=== PATIENT | female | born 1965 | race Caucasian/White ===

== ENCOUNTER 2019-01-24 17:09 | Outpatient (REF) | payer OTHER, SELFPAY ==
--- NOTE | 2019-01-24 14:50 | PAPFT_PTH ---
PATIENT: Ifrah Hein LOC: [facility] U#:[id number] AGE/SX: 53/F ROOM: RE01/24/[address]: NINA Beckman : 1965 BED: DIS: 01/24/2019 SPEC #: [id number] RECD: 01/24/19 17:58 STATUS: JAS REDelores #: [id number] SARAH: 01/24/19 14:[address]: Thao Bailey DEPT: [facility] RECD BY: Sharla Tello ENTERED: 01/24/19 17:58 SP TYPE: PAPFT OTHR DR: Yuliana Dean Tissues: 1 - CX/ENDOCX FOR PAP SMEARS Procedures: PAP THIN PREP/UVM Screening HPV DNA PROBE Comments: [id number]
== END 2019-01-24 17:29 ==
LOC: LBN 17:09
PROVIDERS: PCP Family Medicine; Visit Provider Nurse Practitioner Family
DX: Z12.4 Encounter for screening for malignant neoplasm of cervix (principal); Z11.51 Encounter for screening for human papillomavirus (HPV)
CPT/HCPCS: 88142; 87624

== ENCOUNTER 2019-07-04 08:20 | Day surgery (SDC) | payer OTHER, SELFPAY ==
[2019-07-04 08:33] VITALS: BP 129/89; PULSE 89; RESP 18; TEMP 36.2; O2SAT 98
[2019-07-04] MEDS: Lactated Ringers 1,000 ML 80 ML IV ×2 (08:47→10:02)
--- NOTE | 2019-07-04 09:09 | W.PM.DSUDISC ---
Discharge Plan Disposition Patient Disposition: HOME Condition: Good Discharge Details Reason For Visit: Colonoscopy Attending Provider: Jessica Dyer Primary Care Provider: Yuliana Dean Home Meds and New Rx's Prescriptions: No Action No Known Home Meds RF: 0 Discharge Instructions Additional Instructions: Findings: One polyp was removed from the cecum. My office will contact you with biopsy results. Follow up: Plan for a colonoscopy in 5 years. Please call if you develop: fevers >101.5 Nausea or Vomiting Abdominal pain that is not transient DAY SURGERY UNIT POST COLONOSCOPY INSTRUCTIONS 1. Because there will be medication in your system for the next 24 hours, you may feel a little sleepy. Your coordination will be affected. Therefore: a. Do not drive or operate dangerous equipment for 24 hours. b. Do not drink alcohol beverages for 24 hours (not even beer). c. Plan to go home and rest for the day. 2. Generally there are no restrictions on your activity after a day or so has gone by, but you may feel a bit fatigued for a few days. 3 After you arrive home you may have a light meal and return to a normal diet as you can tolerate it without feeling sick to your stomach. 4. After surgery, you may feel pain or discomfort. This should be only transient, but if it persists please contact your doctor. 5. If there are any questions regarding the findings of your procedure, please feel free to contact your doctor. 6. If you are unable to contact your doctor with a problem, contact the hospital at [phone]. 7. Continue all your regular medications unless directed otherwise. I understand the above instructions and have no questions. Signature of Patient or Responsible Adult Escort Date/Time Name of Responsible Adult Escort Signature of Nurse Date/Time Activity:: Activity as Tolerated Diet:: As Tolerated Discharge Orders Discharge Orders: Discharge Order (Routine); Ordered 07/04/19 Ordered By: Jessica Dyer DS: Diagnosis Discharge Diagnosis (1) Colon polyp: Status: Acute
--- NOTE | 2019-07-04 10:15 | BOWEL_PTH ---
PATIENT: Ifrah Hein LOC: [facility] U#:[id number] AGE/SX: 54/F ROOM: RE07/04/[address]: Jessica Dyer MD : 1965 BED: DIS: 07/04/2019 SPEC #: [id number] RECD: 07/04/19 12:53 STATUS: AJS REQ #: [id number] SARAH: 07/04/19 10:[address]: Jessica Dyer DEPT: Surgical Specimen RECD BY: Sharla Tello ENTERED: 07/04/19 12:54 SP TYPE: Bowel OTHR DR: Yuliana Dean Tissues: 1 - BIOPSY BOWEL Procedures: GROSS AND MICRO LEVEL 4 Comments: [id number]
[2019-07-04 11:06] VITALS: BP 113/74; PULSE 77; RESP 16; TEMP 36.4; O2SAT 98
--- NOTE | 2019-07-04 15:03 | COLE_ITS ---
DATE OF PROCEDURE: July 04, 2019 PREOPERATIVE DIAGNOSIS: Screening. POSTOPERATIVE DIAGNOSIS: Cecal polyp. PROCEDURE: Colonoscopy with cold forceps polypectomy. SURGEON: Jessica Dyer M.D. ANESTHESIA: General. INDICATIONS: This is a 54-year-old woman who presents for her first screening colonoscopy. She is a symptomatic. She has no family history of colon cancer, although her sister recently had surgery to remove a large colon polyp. PROCEDURE: She was placed in the left Turner position. Propofol was titrated to sedation. Digital re ctal examination revealed no abnormalities. The scope was advanced to the cecum without difficulty. Her prep was excellent. The ileocecal valve and appendiceal orifice were clearly identified. Near the appendiceal orifice there was a flat, < 1 cm polyp. The polyp was removed with a cold forceps in several pieces. This was sent to pathology. The scope was slowly withdrawn with no other abnormali ties seen within the ascending, transverse, descending, sigmoid colon or rectum, including on retrofl ex view. She tolerated the procedure well and was stable to recovery. It is anticipated she will need a follow-up colonoscopy again in five years, pending biopsy results. cc: Yuliana Dean M.D.
== END 2019-07-04 11:55 | disposition home or self-care (01) ==
PROVIDERS: PCP Family Medicine; Visit Provider Surgery
PROC: 0DJD8ZZ Inspection of Lower Intestinal Tract, Via Natural or Artificial Opening Endoscopic (ICD-10-PCS; CPT 45378; principal; 2019-07-04 09:45)
DX: Z12.11 Encounter for screening for malignant neoplasm of colon (principal); D12.0 Benign neoplasm of cecum; Z85.3 Personal history of malignant neoplasm of breast
CPT/HCPCS: 45380; 88305; J2001; J2250; J3010

== ENCOUNTER 2019-12-23 08:01 | Outpatient (CLI) | payer OTHER, SELFPAY ==
[2019-12-25 08:00] LABS: COVID-19 RT-PCR Result NEGATIVE (Negative)
== END 2019-12-23 08:21 ==
PROVIDERS: PCP Family Medicine; Visit Provider Nurse Practitioner Family
DX: Z11.59 Encounter for screening for other viral diseases (principal)
CPT/HCPCS: U0003

== ENCOUNTER 2021-02-16 13:32 | Outpatient (REF) | payer OTHER, SELFPAY ==
[2021-02-17 00:08] LABS: COVID-19 RT-PCR UVMMC Result Negative (Negative)
== END 2021-02-16 13:33 | disposition home or self-care (01) ==
LOC: LBN 13:32
PROVIDERS: PCP Family Medicine; Visit Provider Nurse Practitioner Family
DX: Z11.52 Encounter for screening for COVID-19 (principal); Z20.822 Contact with and (suspected) exposure to COVID-19
CPT/HCPCS: U0003

== ENCOUNTER 2021-03-02 13:24 | Outpatient (REF) | payer OTHER, SELFPAY | END 2021-03-02 13:25 | disposition home or self-care (01) | LOC: LBN 13:24 | PROVIDERS: PCP Family Medicine | DX: Z20.822 Contact with and (suspected) exposure to COVID-19 (principal) | CPT/HCPCS: U0003 ==

== ENCOUNTER 2021-03-09 09:41 | Outpatient (REF) | payer OTHER, SELFPAY | END 2021-03-09 09:42 | disposition home or self-care (01) | LOC: LBN 09:41 | PROVIDERS: PCP Family Medicine | DX: Z20.822 Contact with and (suspected) exposure to COVID-19 (principal) | CPT/HCPCS: U0003 ==

== ENCOUNTER 2021-03-21 14:29 | Outpatient (REF) | payer OTHER, SELFPAY ==
[2021-03-21 11:29] LABS: Source Nasal/Nares
[2021-03-21 16:28] LABS: COVID-19 PCR Negative (Negative)
== END 2021-03-21 14:30 | disposition home or self-care (01) ==
LOC: LBN 14:29
PROVIDERS: PCP Family Medicine; Visit Provider Nurse Practitioner Family
DX: Z20.822 Contact with and (suspected) exposure to COVID-19 (principal)
CPT/HCPCS: 87635

== ENCOUNTER 2021-06-24 10:02 | Outpatient (REF) | payer OTHER, SELFPAY ==
[2021-06-24 16:23] LABS: Calculated LDL 123 mg/dL (<100); Cholesterol 211 mg/dL (<200); HDL Cholesterol 58 mg/dL (40-60); Triglyceride 150 mg/dL (<150)
[2021-06-27 10:57] LABS: Hepatitis C Ab w Rflx HCV PCR Negative (Negative)
[2021-06-27 11:08] LABS: HIV-1/2 Ag & Ab Screen Negative (Negative)
== END 2021-06-24 10:03 | disposition home or self-care (01) ==
LOC: NCHCN 10:02
PROVIDERS: PCP Family Medicine; Visit Provider Family Medicine
DX: R63.5 Abnormal weight gain (principal); R03.0 Elevated blood-pressure reading, without diagnosis of hypertension; Z00.00 Encounter for general adult medical examination without abnormal findings; Z11.4 Encounter for screening for human immunodeficiency virus [HIV]; Z11.59 Encounter for screening for other viral diseases
CPT/HCPCS: 80061; 86803; 87389; 83036

== ENCOUNTER 2021-10-28 11:35 | Outpatient (REF) | payer OTHER, SELFPAY ==
--- NOTE | 2021-10-28 11:00 | PAPFT_PTH ---
PATIENT: Ifrah Hein LOC: [facility] U#:[id number] AGE/SX: 56/F ROOM: RE10/28/[address]: NINA Beckman : 1965 BED: DIS: 10/28/2021 SPEC #: [id number] RECD: 10/28/21 12:25 STATUS: JAS REDelores #: [id number] SARAH: 10/28/21 11:[address]: Thao Bailey DEPT: [facility] RECD BY: Sharla Tello ENTERED: 10/28/21 12:25 SP TYPE: PAPFT OTHR DR: Yuliana Dean Tissues: 1 - CX/ENDOCX FOR PAP SMEARS Procedures: PAP THIN PREP/UVM Screening HPV DNA PROBE Comments: [id number]
== END 2021-10-28 11:36 | disposition home or self-care (01) ==
LOC: LBN 11:35
PROVIDERS: PCP Family Medicine; Visit Provider Nurse Practitioner Family
DX: Z12.4 Encounter for screening for malignant neoplasm of cervix (principal); Z11.51 Encounter for screening for human papillomavirus (HPV); R87.810 Cervical high risk human papillomavirus (HPV) DNA test positive
CPT/HCPCS: 88142; 87624

== ENCOUNTER 2021-11-04 10:01 | Outpatient (CLI) | payer OTHER, SELFPAY ==
--- NOTE | 2021-11-04 09:45 | DI.RAD_ITS ---
Exam(s) XR KNEE RT 3V AP,LAT,LEWIS EXAM: XR KNEE RT 3V AP,LAT,LEWIS CLINICAL HISTORY: eval R knee pain. TECHNIQUE: 2D digital imaging was performed of the right knee. Three views obtained. AP, lateral an d PA tunnel views were obtained. COMPARISON: CR RIGHT KNEE 3 VIEWS from 06/27/2017 FINDINGS: BONES: No acute fracture is present. No bony destructive lesion is seen. JOINTS: The knee is normally aligned. There is a small joint effusion. There is periarticular spurri ng in all 3 joint compartments. The articular surfaces are otherwise well maintained. SOFT TISSUE: Normal. IMPRESSION: Mild degenerative changes of the right knee. DATA REPOSITORY: RADIATION DOSE DELIVERED:
--- NOTE | 2021-11-04 09:45 | DI.RAD_ITS ---
Exam(s) XR KNEE LT 3V AP,LAT,LEWIS EXAM: XR KNEE LT 3V AP,LAT,LEWIS CLINICAL HISTORY: eval L knee pain. TECHNIQUE: 2D digital imaging was performed of the left knee. Three images were obtained. AP, late ral and PA tunnel views were obtained. COMPARISON: No previous for comparison. FINDINGS: BONES: No acute fracture is present. No bony destructive lesion is seen. JOINTS: The knee is normally aligned. There is a small suprapatellar joint effusion. Moderate degene rative changes are seen in the left knee with joint space narrowing and periarticular spurring. The findings are most marked in the medial femoral tibial joint. SOFT TISSUE: Normal. IMPRESSION: Moderate degenerative changes of the left knee. DATA REPOSITORY: RADIATION DOSE DELIVERED:
== END 2021-11-04 10:02 | disposition home or self-care (01) ==
LOC: DIORS 10:01
PROVIDERS: PCP Family Medicine; Referring Provider Family Medicine; Visit Provider Student in an Organized Health Care Education/Training Program
DX: M25.562 Pain in left knee (principal); M25.462 Effusion, left knee; M25.561 Pain in right knee; M25.461 Effusion, right knee; M17.0 Bilateral primary osteoarthritis of knee
CPT/HCPCS: 73562

== ENCOUNTER 2021-12-19 01:21 | Outpatient (CLI) | payer OTHER, SELFPAY ==
[2021-12-19 11:55] LABS: Source Nasal/Nares
[2021-12-19 15:28] LABS: COVID-19 PCR Negative (Negative)
== END 2021-12-19 01:22 | disposition home or self-care (01) ==
LOC: LBO 01:22
PROVIDERS: PCP Family Medicine; Visit Provider Student in an Organized Health Care Education/Training Program
DX: Z20.822 Contact with and (suspected) exposure to COVID-19 (principal); Z01.818 Encounter for other preprocedural examination
CPT/HCPCS: 87635

== ENCOUNTER 2021-12-19 01:54 | Outpatient (CLI) | payer OTHER, SELFPAY ==
[2021-12-19 08:03] LABS: HCT 43.7 % (36.0-46.0); HGB 14.2 g/dL (11.2-15.7); MCH 27.2 pg (27.0-33.0); MCHC 32.5 % (32.0-36.0); MCV 84 fL (80-95); MPV 10.5 fL (8.0-11.0); Platelet Count 336 10^3/uL (130-400); RBC 5.23 10^6/uL (3.93-5.22); RDW 12.9 % (11.7-14.6); RDW-SD 39.2 fL; WBC 8.98 10^3/uL (4.4-10.8)
[2021-12-19 08:47] LABS: Anion Gap 7.2 mmol/L (3-11); BUN 18 mg/dL (7-18); CO2 30.8 mmol/L (21.0-32.0); CREATININE 0.9 mg/dL (0.55-1.02); Calcium 8.8 mg/dL (8.5-10.1); Chloride 104 mmol/L (98-107); Glucose 110 mg/dL (74-106); Sodium 142 mmol/L (136-145)
== END 2021-12-19 01:55 | disposition home or self-care (01) ==
LOC: LBO 01:54
PROVIDERS: PCP Family Medicine; Visit Provider Student in an Organized Health Care Education/Training Program
DX: M25.562 Pain in left knee (principal); M17.12 Unilateral primary osteoarthritis, left knee; Z01.818 Encounter for other preprocedural examination; Z01.812 Encounter for preprocedural laboratory examination
CPT/HCPCS: 36415; 80048; 85027

== ENCOUNTER 2021-12-19 13:40 | Outpatient (CLI) | payer OTHER, SELFPAY ==
--- NOTE | 2021-12-19 11:30 | DI.RAD_ITS ---
Exam(s) XR STANDING ALIGNMENT EXAM: XR STANDING ALIGNMENT CLINICAL HISTORY: TKA PLANNING. TECHNIQUE: 2D digital imaging was performed. Standing AP views were performed from the pelvis throu gh the ankles. COMPARISON: CR XR KNEE RT 3V AP,LAT,LEWIS from 11/04/2021 CR XR KNEE LT 3V AP,LAT,LEWIS from 11/04/2021 FINDINGS: BONES: No acute fracture is present. No bony destructive lesion is seen. JOINTS: Knees: Right: Moderate narrowing medial femoral tibial joint space. Left: Severe narrowing m edial femoral tibial joint. The ankle and hip joints are unremarkable. SOFT TISSUE: Normal. IMPRESSION: Degenerative changes of both knees, left greater than right. No significant leg length discrepancy. DATA REPOSITORY: RADIATION DOSE DELIVERED:
== END 2021-12-19 13:41 | disposition home or self-care (01) ==
LOC: DIORS 13:40
PROVIDERS: PCP Family Medicine; Visit Provider Student in an Organized Health Care Education/Training Program
DX: M17.12 Unilateral primary osteoarthritis, left knee (principal); Z01.818 Encounter for other preprocedural examination
CPT/HCPCS: 77073

== ENCOUNTER 2021-12-20 06:02 | Day surgery (SDC) | payer OTHER, SELFPAY ==
[2021-12-20] VITALS (12 sets, daily range): BP systolic 106–166; BP diastolic 67–93; PULSE 74–85; RESP 10–16; TEMP 36.1–36.9; O2SAT 95–99; BMI 25.2
[2021-12-20] MEDS: Lactated Ringers 1,000 ML 80 ML IV (06:42)
[2021-12-20] MEDS: Acetaminophen 500 MG TAB 1000 MG PO (06:43)
[2021-12-20] MEDS: Celecoxib 200 MG CAP 400 MG PO (06:43)
[2021-12-20] MEDS: Gabapentin 300 MG CAP PO (06:43)
--- NOTE | 2021-12-20 06:50 | W.ANESPRE ---
General Info Date of Service Date Performed: 12/20/21 Height: 5 ft 3 in Weight: 64.6 kg Body Mass Index (BMI): 25.2 Surgical Procedure: Operation Date: 12/20/21 07:40 Proposed Procedure Side Surgeon p Knee Total Arthroplasty, Rt Knee Injection Left Armando Aquino MD Meds Allergies and Home Medications Allergies Allergy/AdvReac Type Severity Reaction Status Date / Time hydrocodone [From Vicodin] AdvReac Mild Itching Verified 12/20/21 06:17 Home Medication Medication Instructions Recorded cholecalciferol (vitamin D3) 125 125 mcg PO DAILY 10/28/21 mcg (5,000 unit) capsule (Dialyvite Vitamin D) Current Visit Medications: Current Medications Generic Name Dose Route Start Last Admin Trade Name Freq PRN Reason Stop Dose Admin Acetaminophen 1,000 mg 12/20/21 06:00 12/20/21 06:43 Acetaminophen 500 Mg Tab PO 12/20/21 16:00 1,000 mg PREOP GHULAM Administration Celecoxib 400 mg 12/20/21 06:00 12/20/21 06:43 Celecoxib 200 Mg Cap PO 12/20/21 16:00 400 mg PREOP GHULAM Administration Gabapentin 300 mg 12/20/21 06:00 12/20/21 06:43 Gabapentin 300 Mg Cap PO 12/20/21 16:00 300 mg PREOP GHULAM Administration Tranexamic Acid 1,000 mg/ 60 mls @ 360 mls/hr 12/20/21 06:00 Sodium Chloride IVPB 12/20/21 16:00 PREOP GHULAM Ringer's Solution 1,000 mls @ 80 mls/hr 12/20/21 06:00 12/20/21 06:42 IV 01/18/22 23:59 80 mls/hr INFUSION GHULAM Administration Cefazolin Sodium 2,000 mg/ 100 mls @ 200 mls/hr 12/20/21 06:00 Sodium Chloride IVPB 12/20/21 16:00 PREOP GHULAM IV Miscellaneous Supplies 1 each 12/20/21 06:00 Iv Access IV 01/18/22 23:59 DIRECTED GHULAM Sodium Chloride 0 ml 12/20/21 06:00 Normal Saline Flush 10 Ml Syr IV 01/18/22 23:59 PRN PRN Sodium Chloride 0 ml 12/20/21 06:00 Normal Saline 10 Ml Vial IJ 01/18/22 23:59 DIRECTED PRN Sterile Water 0 ml 12/20/21 06:00 Water,Injection,Sterile 10 Ml Vial IJ 01/18/22 23:59 DIRECTED PRN PFSH Active Problems Active Problems: Problem Status Onset Code Colon polyp K63.5 Encounter for screening for other viral diseases Z11.59 Hearing loss H91.90 Arthritis of left knee M17.12 Primary osteoarthritis of right knee 09/12/17 M17.11 Medical History Medical History BRCA2 gene mutation positive Elevated systolic blood pressure reading without diagnosis of hypertension Family history of breast cancer Hx of adenomatous colonic polyps Snoring Surgical History Surgical History (Updated 12/20/21 @ 06:16 by Eric Howard) Biopsy of breast (~2003) L benign H/O colonoscopy (~07/2019) 2019 - tubular adenoma History of arthroscopy of both knees Hx of bilateral mastectomy Hysterectomy, Laproscopic (~2000) Supracervical with BSO for endometriomas and endometriosis - [facility] Ruiz S/P mastectomy, bilateral (~12/2015) Tobacco Smoking/Tobacco Use Status: Former Tobacco Use Alcohol Alcohol Intake: current Alcohol intake frequency: holidays/special occasions only Substance Use Substance use: Never Substance use type: does not use Vital Signs and Lab Results Vital Signs Most Recent Vital Signs in EMR: Most Recent Vital Signs Temp Pulse Resp BP Pulse Ox 36.7 C 85 16 166/92 H 96 12/20/21 06:19 12/20/21 06:19 12/20/21 06:19 12/20/21 06:19 12/20/21 06:19 Lab Results Blood Type / Crossmatch: No Data to Display Complete Blood Count: White Blood Count 8.98 10^3/uL (4.4-10.8) 12/19/21 07:58 Red Blood Count 5.23 10^6/uL (3.93-5.22) H 12/19/21 07:58 Hemoglobin 14.2 g/dL (11.2-15.7) 12/19/21 07:58 Hematocrit 43.7 % (36.0-46.0) 12/19/21 07:58 Platelet Count 336 10^3/uL (130-400) 12/19/21 07:58 Complete Metabolic Panel: Sodium Level 142 mmol/L (136-145) 12/19/21 07:58 Potassium Level 4.0 mmol/L (3.5-5.1) 12/19/21 07:58 Chloride Level 104 mmol/L (98-107) 12/19/21 07:58 Carbon Dioxide Level 30.8 mmol/L (21.0-32.0) 12/19/21 07:58 Blood Urea Nitrogen 18 mg/dL (7-18) 12/19/21 07:58 Creatinine 0.9 mg/dL (0.55-1.02) 12/19/21 07:58 Estimated GFR/1.73 m2 >= 60.00 (mL/min/1.73m2) 12/19/21 07:58 Calcium Level 8.8 mg/dL (8.5-10.1) 12/19/21 07:58 Glucose Level 110 mg/dL (74-106) H 12/19/21 07:58 Liver Function Panel: No Data to Display Coagulation Panel: No Data to Display Cardiac Panel: No Data to Display Arterial Blood Gas: No Data to Display Venous Blood Gas: No Data to Display Pancreas Panel: No Data to Display Thyroid Panel: No Data to Display Infectious Disease: Coronavirus (COVID-19)(PCR) Negative (Negative) 12/19/21 08:09 Coronavirus 2019 Source Nasal/Nares 12/19/21 08:09 Blood Cultures: No Data to Display Toxicology Panel: No Data to Display Anesthesia Assessment and Plan Anesthesia History Personal History: No History of Anesthesia Complications Family History: No Family History of Anesthesia Complications Exercise Tolerance Exercise Tolerance: Metabolic Equivalents>4 Pertinent Negatives Pertinent Negatives: No Symptoms of GERD, No Major Cardiovascular Symptoms or Complaints and No Major Pulmonary Symptoms or Complaints Cardiac & Pulmonary Exam Cardiac Exam: Normal S1/S2 Heart Sounds Pulmonary Exam: Clear Bilateral Breath Sounds Implantable Cardiac Device Does patient have a Pacemaker or an ICD?: No Airway Exam Known Difficult Airway: No Mallampati Class: 3 Mouth Opening: Normal (> 3cm) Thyromental Distance: Greater than 3 cm Neck Range of Motion: Full ROM Neck Circumference: Normal Teeth Condition: Normal Dentition ASA Classification ASA Score: ASA 2 Emergency Case?: No NPO Status NPO Status: NPO Clears >2 hours, Solids >8 hours Anesthesia Plan Resuscitation Status: Full Code Anesthesia Technique: Spinal Anesthesia Airway Planned: Natural Airway Pain Management: Surgeon and patient request nerve block Monitors Used: Standard Monitors
--- NOTE | 2021-12-20 07:25 | W.PM.DSUDISC ---
Discharge Plan Disposition Patient Disposition: HOME Condition: Good Discharge Details Reason For Visit: Left TKA, right knee injection Attending Provider: Armando Aquino Primary Care Provider: Yuliana Dean Home Meds and New Rx's Prescriptions: New celecoxib [Celebrex] 200 mg capsule 200 mg PO BID Qty: 60 0RF aspirin 81 mg tablet,delayed release (DR/EC) 81 mg PO BID Qty: 60 0RF pantoprazole [Protonix] 40 mg tablet,delayed release (DR/EC) 40 mg PO DAILY Qty: 30 0RF gabapentin 300 mg capsule 300 mg PO QHS Qty: 14 0RF acetaminophen 500 mg capsule 1,000 mg PO Q8H PRN PRNQty: 90 0RF oxycodone 5 mg tablet 5 mg PO Q4H PRNQty: 18 0RF Continued cholecalciferol (vitamin D3) [Dialyvite Vitamin D] 125 mcg (5,000 unit) capsule 125 mcg PO DAILY Discharge Instructions Additional Instructions: Total Knee Discharge Instructions Activity: The most important activity is to walk. You should try to take short walks a few times a day. It is important that when resting you work on keeping the knee straight. Avoid putting a pillow behind the knee as this will encourage flexion. Work on range of motion exercises as provided by Physical Therapy. If you have the [employer] bike coming, this will be your primary tool for exercise after the knee replacement. You should use it and follow the directions for the knee. Utilize the other exercises sparingly based on your symptoms. - Start outpatient physical therapy within 2 weeks. - You should wear the ANKUR hose on both legs for 2 weeks. You may remove these at night. You may also use any compression sock in place of the ANKUR hose. - Utilize [employer] to review exercises, see videos on exercises and obtain basic information pertaining to your surgery and your recovery. Dressing: Remove the Sylvester wrap by 2 days after your surgery and put on the ANKUR stocking given to you from the hospital. Keep the surgical dressing (underneath the SYLVESTER wrap) in place for at least one week. After the first week it may be removed and replaced with light gauze and tape or nothing. The wound and dressing may get wet after 3 days but avoid soaking the dressing or otherwise it will need to be changed. Many people prefer covering the dressing with cling wrap (saran wrap) to minimize it from getting soaked. If it gets wet, just pat dry. If it starts to peel off then it will need to be changed. Medications: - You should take Tylenol and anti-inflammatory Celebrex as your primary pain control medications. If the Celebrex is too expensive or not covered, please call the office for another alternative (Advil/Ibuprofen or Naproxen/Aleve) - You have been prescribed a stronger pain medication Oxycodone for breakthrough pain, take as needed as prescribed. - You have also been prescribed a stomach acid reduction agent Pantoprozole to help reduce stomach acid and reflux. - You have been prescribed Gabapentin to take at night for restlessness and nerve pain. - You will be taking Aspirin 81mg twice a day for DVT prevention unless instructed otherwise. - If you have constipation you should take Colace or Miralax (both [id number]). It takes most people 3-4 days to have a bowel movement. Follow-up: 2 weeks If you have any acute concerns or questions, please do not hesitate to contact the office at [phone]. You may contact Dr. Aquino with any questions after hours through the hospital at [phone] or on his cell phone at [phone]. Referrals: Armando Aquino MD [ [facility] STAFF PHYSICIAN] - Equipment/Supplies: Walker Activity:: Activity as Tolerated Remove Dressings/Wound Care:: Do Not Remove Shower/Bathe:: 72 hours Diet:: As Tolerated Discharge Orders Discharge Orders: Discharge Order (Routine); Ordered 12/20/21 Ordered By: Linda Kang DS: Diagnosis Discharge Diagnosis (1) Arthritis of left knee: Status: Acute (2) Primary osteoarthritis of right knee: Status: Acute
[2021-12-20] MEDS: ceFAZolin 2,000 MG in Normal Saline 100 ML 200 MG IVPB (07:33)
[2021-12-20] MEDS: methylPREDNISolone ACETATE 80 MG/ML VIAL (07:49)
[2021-12-20] MEDS: Bupivacaine 0.25% Pres-Free 10 ML VIAL (07:49)
--- NOTE | 2021-12-20 08:32 | W.ANESNERVE ---
Nerve Block Single Injection Procedure Date and Time Date Performed: 12/20/21 Procedure Start: 07:21 Location Where Procedure Performed Procedure Location: Day Surgery Unit Reason Performed: Postoperative Analgesia Requesting Provider: Armando Aquino Timeout Performed Timeout Performed: Yes Monitoring Used ECG, Blood Pressure, SpO2 and See EMR for corresponding vital signs Sterility Sterility: Hand Hygiene, Surgical Cap, Surgical Mask, Sterile Gloves and Chlorhexidine Sedation Given During Procedure Sedation Given (Indicate Dose Given): Versed IV Dose:: 2mg and Other: Medication/Route/Dose:: Zofran 4mg IV Patient Mental Status Patient Mental Status: Awake Nerve Block 1st Nerve Block: Laterality: Left Block Type: Adductor Canal Needle / Catheter Used: 100mm SonoPlex II Local Anesthetic Bolus (Indicate Dose Given): Lidocaine used for local infiltration of skin, Injected in 3-5ml increments after negative blood aspiration and Bupivacaine 0.25% Dose:: 20mL Additives (Indicate Dose Given): None Ultrasound: Sterile probe cover and gel used Ultrasound Image Saved?: Yes Nerve Stimulator: Not Used Paresthesia: None Procedure Tolerated: No Complications and Patient tolerated well Procedure Outcome: Successful Performed By: Joselin Lin Supervised By: Chandu Vidal
--- NOTE | 2021-12-20 09:21 | ROE_ITS ---
Date of service: 12/20/21 Time of Service: 09:00 Operative Note Operative Note DATE OF PROCEDURE: 12/20/21 PRE-OP DIAGNOSIS: Left Knee Osteoarthritis POST-OP DIAGNOSIS: same PROCEDURE: Left Total Knee Replacement SURGEON: Armando Aquino COMMUNICATIONS BILLING ANALYST: Linda Kang ANESTHESIA TYPE: Spinal Refer to Anesthesia Record ESTIMATED BLOOD LOSS: 200 PATHOLOGY: none sent TOURNIQUET TIME: 0 COMPLICATIONS: None Patient was transported to: PACU Patient's condition: stable Implants: 1. Depuy Attune Cementless Cruciate Retaining Femoral Component, Size 4 2. Depuy Attune Cementless Rotating Platform Tibial Component, Size 3 3. Depuy Attune 4x6mm CR/RP Poly 4. Depuy Attune Patellar Component, Size 32 Indications: I have seen Ifrah in clinic for symptoms of knee arthritis, confirmed with radiographic findings. SHe has exhausted nonoperative methods and was having significant limitations in daily function and desired better function and less pain. I discussed the technical details of a knee replacement. I explained the risks of the procedure to include, but not limited to, bleeding, infection, pain, stiffness, fracture, damage to nerves and vessels, damage to muscles and tendons, loosening, need for repeat procedure, blood clot and cardiopulmonary demise. Despite these risks, Ifrah elected to proceed. Findings: There was significant signs of arthritis throughout the knee. Procedure Description: Ifrah was greeted in the preoperative holding area where the correct side was identified and marked. The consent was reviewed with the patient and signed. The history and physical was updated. All questions were answered. Preoperative medications were administered: Acetaminophen 1000mg, Celebrex 400mg, and Gabapentin 300mg. An adductor canal block was then administered by the anesthesia team in the PACU. Ifrah was taken back to the operating room. A spinal anesthestic was then administered. The patient was placed into the supine position on the operating room table. A nonsterile tourniquet was placed high onto the leg but only used for cementing. Posts were placed for positioning during the procedure. All bony prominences were well padded. Prophylactic antibiotics in the form of Cefazolin were administered. 1g of Tranxemic Acid was given intravenously within 30 minutes of incision. The left leg was then prepped with Chloraprep and draped in a standard fashion with impervious stockinette. A second prep with Chloraprep was performed prior to application of Iodine impregnated skin protection. A timeout to confirm correct identity, side and site, procedure, allergies, anesthesia, and medical concerns was performed. With the knee in some flexion, a midline incision was made overlying the knee. Full thickness skin flaps were raised once the extensor mechanism was encountered. These were raised medially and laterally. Any bleeding was controlled with electrocautery. Once the extensor mechanism was fully exposed, a medial parapatellar arthrotomy was performed in a flexed position. All bleeding from the arthrotomy and the geniculate arteries was coagulated. A medial subperiosteal peel was performed with electrocautery to the midcoronal plane. The fat pad was removed while keeping the patellar tendon protected. The anterior distal femur synovium was removed for later visualization. The ACL and PCL were resected and the anterior horn of the lateral meniscus was transected. The knee was then flexed with the patella everted. Large osteophytes from the tibia were removed. Large osteo phytes from the femur were removed. Using a step drill, and based on preoperative templating, the femoral canal was entered. This was done with a step drill without any difficulty. The intramedullary distal femoral cut guide was inserted, set to a 5 degree valgus cut and 9mm cut thickness. The distal femoral cut guide was then held in position and pinned. With the soft tissues protected, the distal cut was performed. This was passed over a few times to ensure a planar cut. I then turned attention to the tibia. The extramedullary guide was placed onto the leg. The distal aspect was slid medial to adjust for position of center of ankle and stay in line with shaft of the tibia. Approximately 3-5 degrees of posterior slope was kept in the proximal cutting guide. The center of the guide was aligned with the PCL. The stylus was used to assess cut thickness. The medial side, most involved side, was set for a 4mm cut, corresponding to 8mm laterally. This was then held in position and pinned into place with 2 additional pins and a cross pin for stability. The medial and lateral collateral ligaments were protected and the cut was performed. With this completed, it was assessed and noted to be of appropriate dimensions. The guide was removed. A spacer block was inserted and the knee was brought into extension. The 6mm spacer block provided full extension, without hyperextension and with stability of both the medial and lateral collateral ligaments was assessed. The pins from the femur and the tibia were then removed. The distal femur was then sized. The anterior stylus was placed onto the lateral ridge of the anterior femur. This indicated a size 4 femur. The external rotation of the guide was adjusted to 3 degrees to match the epicondylar axis, perpendicular to [place]?s line. The 4-in-1 cutting guide was the placed. The posterior medial femur cut was evaluated and appeared of good thickness. The spacer block was inserted underneath the cutting guide and stability was confirmed in 90 degrees of flexion. An rj wing was used to confirm appropriate position of the anterior cut to avoid notching. This cutting guide was ensured to be flush on the cut surface and then pinned into place with headed pins. While protecting the soft tissues, quad tendon, and collateral ligaments, the anterior and posterior cuts were performed with a saw. The central two pins were removed and the posterior and anterior chamfers were cut next. The notch-cutting guide was placed. This was pinned to lateralize the femoral component as much as possible while keeping it flush on the cut surface. This was then pinned into position. A reciprocating saw was used to make the notch cut. A rasp smoothed the cut surfaces. The medial and lateral menisci were removed. A trial femoral component was then inserted, impacted down to the cut surfaces, and the lug holes were drilled. A provisional trial tibial component was placed and the knee was brought through range of motion. There was noted to be excellent extension and flexion. There was no significant instability. The patella was tracking without thumbs. A size 6mm polyethylene component provided the best range of motion and stability with less than 2mm gapping with medial and lateral stress and full extension without significant hyperextension. The tibial cut surface was fully exposed. The tibia was then sized as a 4. The tibia had been previously marked during trialing to correspond to the center of the tibial component to help with rotation. The trial was aligned to this zen, approximately rotated to the medial 1/3rd of the tibial tubercle. The trial was pinned into place. The tibia was prepared with a reamer and a keel punch and lug holes. The knee was then brought into extension and the patella was measured as 22mm. Using the patellar clamp and cut guide, this was resected to a flat surface with at least 13mm of thickness remaining. The size 32 patella fit the best. This was oriented and then clamped into position. The lugs were drilled. The trial components were removed. The final components were opened on the back table. The periosteal and capsular tissues, especially posteriorly, around the knee were then systematically injected with a periarticular cocktail consisting of 246mg of Ropivacaine, 0.5mg of Epinephrine, 0.08mg of Clonidine, and 30mg of Ketorolac, diluted to 100cc. On the back table, with the implants opened, the cement was mixed. One batch of high viscosity cement was prepared with vacuum assistance. After the cement was ready a small amount was placed on the cut surface of the patella and the patellar button was clamped into position and held. While the cement was hardening, the cementless knee components were placed. Starting with the tibial component, the tibia was subluxed anteriorly and the lug holes of the component were lined up. The tibia was then impacted with an impactor and mallet until the tibial component was in contact with the tibia. The final polyethylene component was inserted. Then, the femoral component was inserted. The lug holes were aligned and the component was impacted into position. The knee was irrigated with Surgiphor Betadine solution. This was allowed to sit in the knee for 3 minutes and then it was irrigated out with saline. After the cement had finally cured, approximately 15min, the clamp was removed from the patella and the knee was taken through range of motion. The patella was tracking with a no-thumbs technique. The capsule was then reapproximated with a No. 1 Vicryl at multiple locations. The capsule was finally closed with a No. 2 Stratafix, barbed suture. The second dosing of 1g TXA was started. Deep tissues were then reapproximated with 0 Vicryl and 2-0 Vicryl. The skin was closed with a running 3-0 Monocryl in a subcuticular fashion. This was reinforced with skin glue. A Mepilex silver dressing was applied along with a [id number] TERRY wrap. A CryoCuff was applied. Ifrah was transferred to the hospital bed without difficulty an suffering no apparent complication. Ifrah has a good prognosis. Physical therapy will start today and without restrictions, weight-bearing as tolerated. Aspirin 81mg BID will be used for DVT prophylaxis.
--- NOTE | 2021-12-20 09:27 | W.ANESPOSTOP ---
Postoperative Evaluation Date, Time and Location Date Performed: 12/20/21 Time Performed: 09:28 Patient Location: PACU Vital Signs Most Recent Imported Vital Signs: Most Recent Vital Signs Temp Pulse Resp BP Pulse Ox 36.1 C L 75 13 132/83 97 12/20/21 09:10 12/20/21 09:15 12/20/21 09:15 12/20/21 09:15 12/20/21 09:15 Pain Score Most Recent Pain Score: Most Recent Pain Score Pain Level 0 12/20/21 09:15 Assessment Mental Status: Awake (Alert & Oriented to Patient Baseline) Airway and Respiratory Function: Patent airway with normal (patient baseline) respiratory exam Cardiovascular Function: Hemodynamically Stable Hydration Status: Adequately Hydrated Nausea & Vomiting: No Nausea or Vomiting Pain: Pt. Denies Any Pain Peripheral Nerve Block: Regional nerve block not resolved at time of post operative discharge
[2021-12-20] MEDS: fentaNYL 100 MCG/2 ML VIAL IVP (09:33)
--- NOTE | 2021-12-20 10:43 | W.ANESPOSTOP ---
Postoperative Evaluation Date, Time and Location Date Performed: 12/20/21 Time Performed: 10:43 Patient Location: Day Surgery Unit Vital Signs Most Recent Imported Vital Signs: Most Recent Vital Signs Temp Pulse Resp BP Pulse Ox 36.3 C L 74 16 126/78 98 12/20/21 10:35 12/20/21 10:35 12/20/21 10:35 12/20/21 10:35 12/20/21 10:35 Most Recent Vital Signs Temp Pulse Resp BP Pulse Ox 36.1 C L 75 13 132/83 97 12/20/21 09:10 12/20/21 09:15 12/20/21 09:15 12/20/21 09:15 12/20/21 09:15 Pain Score Most Recent Pain Score: Most Recent Pain Score Pain Level 4 12/20/21 10:43 Assessment Mental Status: Awake (Alert & Oriented to Patient Baseline) Airway and Respiratory Function: Patent airway with normal (patient baseline) respiratory exam Cardiovascular Function: Hemodynamically Stable Hydration Status: Adequately Hydrated Nausea & Vomiting: No Nausea or Vomiting Pain: Pain is tolerable per patient Peripheral Nerve Block: Regional nerve block not resolved at time of post operative discharge Postoperative Comments:: Spinal has worn off. Patient doing well.
[2021-12-20] MEDS: oxyCODONE 5 MG TAB PO (10:44)
--- NOTE | 2021-12-20 12:02 | PT.INIE ---
Date of service: 12/20/21 Time of Service: 12:02 PT Notes Visit Reasons: Left TKA, right knee injection Physical Therapy Day Surgery Initial Evaluation Date: 12/20/2021 Referring Doctor: JONNY Palafox PT Orders: PT CONSULT: S/P Ortho surgery Precautions: WBAT on left LE with AD. Patient Profile/Admitting Diagnosis: Tracey is a 56-year-old female with primary osteoarthritis of the right and the left knee and is status post left total knee arthroplasty and injection of the right knee on postoperative day 0 . PMHX: Medical History? BRCA2 gene mutation positive Elevated systolic blood pressure reading without diagnosis of hypertension Family history of breast cancer Hx of adenomatous colonic polyps Snoring Surgical History? Biopsy of breast (~2003) L benign H/O colonoscopy (~07/2019) 2019 - tubular adenomaHistory of arthroscopy of both knees Hysterectomy, Laproscopic (~2000) Supracervical with BSO for endometriomas and endometriosis - [facility] S/P mastectomy, bilateral (~12/2015) Social History/Home Situation: Lives with significant other in a private home with 2-3 setps to enter without rails. There is another 6 steps inside the house. Independent with all aspects of ADLs prior to surgery. 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 Equipment Owned/DME: [employer] Subjective: Agreeable to consult. Reports aching in the front of left thigh at 2/10. Some pain in the R knee. Reported nausea after mobility assessment that resolved with intake of crackers and bon juan. Objective: General Observation: Supine in bed. TERRY wrap on L LE. Cryocuff on L knee. Mental Status: Alert and oriented x 4 Pain: 2/10 in the R and L knee ROM: Right Lower Extremity: Hip flexion WFL. Hip abduction WFL. Knee flexion WFL. Ankle dorsiflexion WFL. Ankle plantarflexion WFL. Left Lower Extremity: Hip flexion WFL. Hip abduction WFL. Knee flexion 10 degrees to 100 degrees. Knee extension -10 degrees. Ankle dorsiflexion WFL. Ankle plantarflexion WFL. Strength: Right Lower Extremity: Hip flexors 5/5. Hip abductors 5/5. Knee flexors 3-/5. Knee extensors 3-/5. Ankle dorsiflexors 5/5. Ankle plantarflexors 5/5. Left Lower Extremity:Hip flexors 5/5. Hip abductors 5/5. Knee flexors 5/5. Knee extensors 5/5. Ankle dorsiflexors 5/5. Ankle plantarflexors 5/5. Sensation: Intact as to pain and light pressure in bilateral lower extremities. Bed Mobility/Transfers: Supine to sit standby assist Sit to stand contact-guard assist Stand to sit standby assist Bed to chair standby assist Gait: 150 feet using the FWW with stand by assist, step-to gait pattern. Reported 2/10 pain in left hand distal left thigh. Balance: Static Sitting: Normal Dynamic Sitting: Normal Static Standing: Fair Dynamic Standing: Fair Special Tests: Mobility Limitations Standardized Measure [facility] AM-PAC 6 clicks Basic Mobility Inpatient Short Form: Raw Score: 22 CMS Score: 21% deficit Informed Consent/Education: Patient instructed in purpose of PT consult. Packet containing exercise protocol has been given to patient. Education and training on initial set of exercises that can be done at home have been completed with patient. Assessment: Ifrah requires the use of a front wheeled walker for all mobility ADL performance to maximize independence and reduce fall risk at home. Patient presents with clinical signs and symptoms consistent with current/admitting diagnoses that have resulted to mobility limitations, gait instability, generalized weakness, and impairment of motor control as demonstrated by the following impairment level findings: 1. Decreased strength to left knee major muscle groups 2. Impaired standing balance 3. Limitation of joint range of motion in left knee Impairments are contributing to the following functional limitations: 1. Inability to safely ambulate without assistive device 2. Increase completion time for mobility ADL performance 3. Increased fall risk Patient is assessed as a 22444 moderate complexity based on the following: History: 56-year-old female with impairment level findings, functional limitations, and past medical history as indicated above Examination: Demonstrable impairment in strength, balance, and mobility level with underlying impairments and functional limitations as documented above Presentation: Evolving Decision Makin moderate complexity Goals: N/A. PT evaluation and 1-2 treatment sessions only for functional mobility training using recommended AD and for HEP instruction. Plan of Care/Treatment Plan: N/A. PT evaluation and 1-2 treatment session only for functional mobility training using recommended AD and for HEP instruction. DISCHARGE RECOMMENDATIONS: [] Home with no services [] [] Home with services [specify] [X] Home with outpatient PT. Home when medically cleared by orthopedic surgeon. May benefit from outpatient PT services in order to facilitate return to independent community ambulation without an assistive device. [] SNF for continued rehabilitation [] [] Group Home Care [] [] SNF versus LTC based on ability to participate and progress [] TREATMENT CODE/TIME: 95947 x 20 minutes, 74469 x 18 minutes beginning at 12:02 PM. Thank you for the opportunity to participate in the care of this patient. Idania Zamora PT, DPT, CLT [facility] [place], [place]
== END 2021-12-20 13:14 | disposition home or self-care (01) ==
PROVIDERS: PCP Family Medicine; Visit Provider Student in an Organized Health Care Education/Training Program
PROC: (CPT 27447; principal; 2021-12-20 07:30)
PROC: (CPT 27447; 2021-12-20 07:30)
DX: M17.0 Bilateral primary osteoarthritis of knee (principal)
CPT/HCPCS: 27447; 20610; 76942; 97162; 97530; J0690; J1040; J2250; J2405; J3010

== ENCOUNTER 2022-01-02 11:07 | Outpatient (CLI) | payer OTHER, SELFPAY ==
--- NOTE | 2022-01-02 11:00 | DI.RAD_ITS ---
Exam(s) XR KNEE LT 1V XR STANDING ALIGNMENT EXAM: XR STANDING ALIGNMENT CLINICAL HISTORY: R TKR TECHNIQUE: COMPARISON: CR XR STANDING ALIGNMENT from 12/19/2021 CR XR KNEE LT 1V from 01/02/2022 FINDINGS: Standing AP alignment views are obtained and are interpreted in conjunction with lateral view of left knee. There is a total left knee joint replacement in position. The components appear well seated. There are moderate degenerative changes of the medial tibiofemoral joint on the right. Mild degenera tive changes of both hips noted as well. IMPRESSION: RADIATION DOSE DELIVERED: Total DLP position
== END 2022-01-02 11:08 | disposition home or self-care (01) ==
LOC: DIORS 11:07
PROVIDERS: PCP Family Medicine; Referring Provider Family Medicine; Visit Provider Physician Assistant
DX: Z96.651 Presence of right artificial knee joint (principal); M16.0 Bilateral primary osteoarthritis of hip; M17.11 Unilateral primary osteoarthritis, right knee
CPT/HCPCS: 73560; 77073

== ENCOUNTER 2022-10-20 11:52 | Outpatient (REF) | payer OTHER, SELFPAY ==
--- NOTE | 2022-10-20 09:15 | PAPFT_PTH ---
PATIENT: Ifrah Hein LOC: [facility]#:[id number] AGE/SX: 57/F ROOM: RE10/20/[address]: Yuliana Dean : 1965 BED: DIS: 10/20/2022 SPEC #: [id number] RECD: 10/23/22 13:05 STATUS: JAS REDelores #: [id number] SARAH: 10/20/22 09:[address]: Yuliana Dean DEPT: [facility] Cytology RECD BY: Sharla Tello Tissues: 1 - CX/ENDOCX FOR PAP SMEARS Procedures: PAP THIN PREP/UVM Screening HPV DNA PROBE Comments: [id number]
== END 2022-10-20 11:53 | disposition home or self-care (01) ==
LOC: NCHCN 11:52
PROVIDERS: PCP Family Medicine; Visit Provider Family Medicine
DX: Z12.4 Encounter for screening for malignant neoplasm of cervix (principal); Z11.51 Encounter for screening for human papillomavirus (HPV); Z01.419 Encounter for gynecological examination (general) (routine) without abnormal findings
CPT/HCPCS: 88142; 87624

== ENCOUNTER 2022-12-11 13:43 | Outpatient (CLI) | payer OTHER, SELFPAY ==
--- NOTE | 2022-12-11 13:18 | DI.RAD_ITS ---
Exam(s) XR KNEE LT 3V AP,LAT,LEWIS EXAM: XR KNEE LT 3V AP,LAT,LEWIS CLINICAL HISTORY: annual f/u L TKA. TECHNIQUE: 2D digital imaging was performed. COMPARISON: CR XR KNEE LT 1V from 01/02/2022 FINDINGS: 3 views There is continued stable appearance and alignment of the components of the prosthesis. No fracture or loosening evident. IMPRESSION: Stable satisfactory appearance. DATA REPOSITORY: RADIATION DOSE DELIVERED:
== END 2022-12-11 13:44 | disposition home or self-care (01) ==
LOC: DIORS 13:43
PROVIDERS: PCP Family Medicine; Referring Provider Family Medicine; Visit Provider Student in an Organized Health Care Education/Training Program
DX: Z96.698 Presence of other orthopedic joint implants (principal); Z47.1 Aftercare following joint replacement surgery
CPT/HCPCS: 73562

== ENCOUNTER 2023-01-27 12:02 | Outpatient (REF) | payer OTHER, SELFPAY ==
[2023-01-27 17:56] LABS: Bacteria Few HPF (Negative); C & S Indicated? C&S Done As Ordered; Casts Negative LPF (Negative); Crystals Negative HPF (Negative); Epithelial Cells Rare HPF (Negative); Mucus Negative (Negative); RBC >50 HPF (0-2)
== END 2023-01-27 12:03 | disposition home or self-care (01) ==
LOC: LBN 12:02
PROVIDERS: PCP Family Medicine; Visit Provider Nurse Practitioner Family
DX: N39.0 Urinary tract infection, site not specified (principal)
CPT/HCPCS: 87077; 81015; 87086; 87186

== ENCOUNTER 2023-05-24 14:24 | Emergency (ER) | payer OTHER, SELFPAY ==
--- NOTE | 2023-05-24 14:31 | W.ED.GENAD ---
Discharge Plan Disposition Patient Disposition: Home Discharge Details Primary Care Provider: Yuliana Dean ED Provider: Castro Vasquez Home Meds and New Rx's Prescriptions: Continued acetaminophen 500 mg capsule 1,000 mg PO Q8H PRN PRNQty: 90 0RF Discharge Instructions Additional Instructions: You are seen in the emergency department for your toe pain. Your x-ray showed a fracture for which you are being treated with a walking boot. You may bear weight on your left lower extremity but please do so in this boot until you are seen by podiatry next week. As we discussed if you develop worsening pain fevers or chills please return to the emergency department. You may ice your toe and rest your toe for 20 minutes on 20 minutes off throughout the day today. For your pain please take medications as follows: 1. Take acetaminophen (Tylenol), 1,000 mg (two 500 mg tabs) every 6 hours 2. Take ibuprofen (Advil), 400 mg every 6 hours. Referrals: Nathalia Hunter DPM [[facility] STAFF PHYSICIAN] - Discharge Data Discharge Date/Time-TO BE ENTERED AT DEPARTURE: 05/24/23 15:58 HPI General Date/Time Provider Initiated Documentation: 05/24/23 14:31. HPI Narrative: MDM Primary survey intact. Reassuring shock index. On secondary survey patient has tenderness but no obvious deformity to left fourth toe. No lacerations that would require repair. No indication for tetanus immunization. Will obtain x-ray. No pain out of proportion to suggest necrotizing soft tissue infection. No preceding chest pain dizziness nausea vomiting so will defer labs and ECG. No syncope so will defer syncope evaluation. No falls or head strike so will defer CT head. Anticipate hard soled shoe regardless of results of x-ray. Will reassess following plain films. 3:45 PM Patient had a proximal fourth phalange nondisplaced fracture. I placed her in a short walking boot and instructed her on gigi taping. I advised acetaminophen and ibuprofen. I have asked health community resource officer Mira to have the patient seen within the next week by podiatry. Advised ED return for worsening pain and swelling. Chronic conditions affecting the care of the patient: Osteoarthritis History obtained from an outside historian: N/A Medications: Acetaminophen ibuprofen Social determinants of health affecting disposition: N/A Management discussed with: N/A Treatment/interventions considered: N/A Response to therapies provided: N/A HPI This is a 58-year-old female with a history of osteoarthritis arrives emergency department via private vehicle in the setting of injury she sustained just prior to arrival stubbing her left toe on a bed. She had no preceding chest pain shortness of breath difficulty breathing no headache. She did not fall nor lose consciousness. She felt that her toe was slightly out of alignment. She put slippers on and this improved. No prior history of fractures to this toe. No foot pain ankle pain or knee pain. No other complaints. Will was in her usual state of health earlier today with no nausea vomiting chest pain or shortness of breath. Exam General: Well-appearing in no acute distress speaking in complete sentences. Head: Normocephalic, atraumatic. Eye: Extraocular eye movements intact. No conjunctival injection. No scleral icterus. Ear, nose, mouth, throat: Grossly normal inspection. Normal voice, handling secretions normally. Neck: Trachea midline. Cardiovascular: Well-perfused distal extremities. Respiratory: Nonlabored respiration. Gastrointestinal: Nondistended abdomen. Musculoskeletal: Left lower extremity with no obvious signs of trauma. No tenderness from knee through tibia and fibula down through left ankle and foot. Patient does have tenderness throughout her left fourth toe. No deformities. No ecchymosis. No lacerations. Skin: Normal for age and race, grossly normal temperature and turgor. No acute rash. Neurologic: Alert and appropriate, no apparent acute deficits. Psychiatric: Mood and manner are appropriate. Grooming and personal hygiene are appropriate. Related Data Home Medications Medication Instructions Recorded Confirmed acetaminophen 500 mg capsule 1,000 mg (2 x 500 mg) PO Q8H PRN 12/20/21 05/24/23 PRN #90 caps Previous Rx's Medication Instructions Recorded acetaminophen 500 mg capsule 1,000 mg (2 x 500 mg) PO Q8H PRN 12/20/21 PRN #90 caps Allergies Allergy/AdvReac Type Severity Reaction Status Date / Time hydrocodone [From Vicodin] AdvReac Mild Itching Verified 05/24/23 15:00 PFSH All Active Problems (Updated 12/11/22 @ 22:19 by Armando Aquino MD) Patellar tendinitis, left knee (Acute) History of total left knee replacement (TKR) (Acute 12/20/21) Colon polyp (Acute) Encounter for screening for other viral diseases (Acute) Hearing loss (Acute) Primary osteoarthritis of right knee (Acute 09/12/17) Medical History BRCA2 gene mutation positive Elevated systolic blood pressure reading without diagnosis of hypertension Family history of breast cancer Hx of adenomatous colonic polyps Snoring Surgical History Biopsy of breast (~2003) L benign H/O colonoscopy (~07/2019) 2020 - tubular adenoma History of arthroscopy of both knees Hx of bilateral mastectomy Hysterectomy, Laproscopic (~2000) Supracervical with BSO for endometriomas and endometriosis - [facility] S/P mastectomy, bilateral (~12/2015) Family History Mother , at 65 Breast cancer Father , at 85 Diabetes Heart disease Stroke Hyperlipidemia Sister Breast cancer + BRCA -2 Diabetes Maternal Aunt Breast cancer Maternal Maternal Aunt Breast cancer Maternal Maternal Aunt Breast cancer Maternal Paternal Uncle Colon cancer Son BRCA gene positive Social History Smoking/Tobacco Use Status: Former Tobacco Use Quit Date: 06/04/85 Smoking risk assessment performed?: Yes Alcohol Intake: current Alcohol Intake frequency: holidays/special occasions only Drug use: Never Substance use type: does not use current occupation[place] [employer] [place] What is your relationship status?: Panel score (0-1 are the most socially isolated patients): 1 What type of physical activity do you participate in: walking and bicycling Duration: 30-45 minutes/day Frequency: 1-2 times per week Seatbelt use: always Helmet use: Yes Working smoke detector in home: Yes Firearms in home: Yes Do you feel safe at home: Yes Do you feel safe in your relationship?: Yes
[2023-05-24 14:39] VITALS: BP 167/110; PULSE 94; RESP 16; TEMP 37; O2SAT 95
--- NOTE | 2023-05-24 15:20 | DI.RAD_ITS ---
Exam(s) XR TOE LT FOURTH EXAM: XR TOE LT FOURTH CLINICAL HISTORY: Left fourth toe pain. TECHNIQUE: 2D digital imaging was performed. Four images were obtained. COMPARISON: No exams were available for comparison FINDINGS: BONES: There is an acute fracture through the shaft of the proximal phalanx of the 4th toe. There i s mild lateral angulation of the distal fracture. No bony destructive lesion is seen. JOINTS: No dislocation present. SOFT TISSUE: There is soft tissue swelling of the 4th toe. IMPRESSION: Fracture of the proximal phalanx of the 4th toe. DATA REPOSITORY: RADIATION DOSE DELIVERED:
--- NOTE | 2023-05-24 15:46 | NUR.NOTE ---
Pt referred to Podiatry for a toe fracture within 1 week.
== END 2023-05-24 15:58 | disposition home or self-care (01) ==
PROVIDERS: Emergency Provider Emergency Medicine; PCP Family Medicine
DX: S92.515A Nondisplaced fracture of proximal phalanx of left lesser toe(s), initial encounter for closed fracture (principal); W22.03XA Walked into furniture, initial encounter; Y93.01 Activity, walking, marching and hiking; Y92.013 Bedroom of single-family (private) house as the place of occurrence of the external cause; Z87.891 Personal history of nicotine dependence
CPT/HCPCS: 99283; 73660

== ENCOUNTER 2023-06-27 09:59 | Outpatient (REF) | payer OTHER, SELFPAY ==
[2023-06-27 15:30] LABS: Anion Gap 9.3 mmol/L (3-11); BUN 9 mg/dL (7-18); CO2 29.7 mmol/L (21.0-32.0); CREATININE 0.9 mg/dL (0.55-1.02); Calcium 9.4 mg/dL (8.5-10.1); Chloride 102 mmol/L (98-107); Estimated GFR 73.19 (mL/min/1.73m2); Glucose 146 mg/dL (74-106); Potassium 4.1 mmol/L (3.5-5.1); Sodium 141 mmol/L (136-145)
[2023-06-27 16:21] LABS: Hemoglobin A1C 6.3 % (<5.7)
== END 2023-06-27 10:00 | disposition home or self-care (01) ==
LOC: NCHCN 09:59
PROVIDERS: PCP Family Medicine; Visit Provider Family Medicine
DX: I10 Essential (primary) hypertension (principal); R73.03 Prediabetes
CPT/HCPCS: 80048; 83036

== ENCOUNTER 2024-07-11 15:28 | Outpatient (REF) | payer OTHER, SELFPAY ==
[2024-07-11 18:44] LABS: Calculated LDL 82 mg/dL (<100); Cholesterol 213 mg/dL (<200); HDL Cholesterol 55 mg/dL (40-60); Triglyceride 381 mg/dL (<150)
[2024-07-11 18:45] LABS: Hemoglobin A1C 6.7 % (<5.7)
[2024-07-15 10:29] LABS: Apolipoprotein B, S 97 mg/dL
== END 2024-07-11 15:29 | disposition home or self-care (01) ==
LOC: NCHCN 15:28
PROVIDERS: PCP Family Medicine; Visit Provider Family Medicine
DX: R73.03 Prediabetes (principal); Z13.220 Encounter for screening for lipoid disorders; Z82.49 Family history of ischemic heart disease and other diseases of the circulatory system
CPT/HCPCS: 80061; 82172; 83036

== ENCOUNTER 2024-10-10 15:06 | Outpatient (REF) | payer OTHER, SELFPAY ==
[2024-10-10 16:45] LABS: ALT 27 U/L (14-59); AST 20 U/L (15-37); Albumin 3.8 g/dL (3.4-5.0); Alkaline Phosphatase 95 U/L (46-116); Anion Gap 7.1 mmol/L (3-11); BUN 18 mg/dL (7-18); Bilirubin, Total 0.3 mg/dL (0.2-1.0); CO2 29.9 mmol/L (21.0-32.0); CREATININE 0.9 mg/dL (0.55-1.02); Calcium 9.3 mg/dL (8.5-10.1); Chloride 104 mmol/L (98-107); Estimated GFR 72.73 (mL/min/1.73m2); Glucose 139 mg/dL (74-106); Potassium 4.2 mmol/L (3.5-5.1); Sodium 141 mmol/L (136-145); Total Protein 7.3 g/dL (6.4-8.2)
[2024-10-10 17:03] LABS: Hemoglobin A1C 6.1 % (<5.7)
[2024-10-10 17:48] LABS: COMMENT (LAB VIEW ONLY) 227.35 mg/dL; Microalb ug/mg Crea 8.9 ug/mg Cr
== END 2024-10-10 15:07 | disposition home or self-care (01) ==
LOC: NCHCN 15:06
PROVIDERS: PCP Family Medicine; Visit Provider Family Medicine
DX: R73.03 Prediabetes (principal)
CPT/HCPCS: 80053; 82043; 82570; 83036

== ENCOUNTER 2025-03-24 18:14 | Outpatient (REF) | payer OTHER, SELFPAY | END 2025-03-24 18:15 | disposition home or self-care (01) | LOC: LBN 18:14 | PROVIDERS: PCP Family Medicine; Visit Provider Nurse Practitioner Family | DX: N30.01 Acute cystitis with hematuria (principal) | CPT/HCPCS: 87077; 87086; 87186 ==

== ENCOUNTER 2025-06-02 13:23 | Outpatient (REF) | payer OTHER, SELFPAY ==
[2025-06-02 16:11] LABS: Anion Gap 8.3 mmol/L (3-11); BUN 14 mg/dL (9-23); CO2 30.7 mmol/L (20.0-31.0); Calcium 9.4 mg/dL (8.3-10.6); Chloride 105 mmol/L (98-107); Glucose 160 mg/dL (74-106); Potassium 4.3 mmol/L (3.5-5.1); Sodium 144 mmol/L (136-145)
== END 2025-06-02 13:24 | disposition home or self-care (01) ==
LOC: NCHCN 13:23
PROVIDERS: PCP Family Medicine; Visit Provider Family Medicine
DX: I10 Essential (primary) hypertension (principal)
CPT/HCPCS: 80048